=== PATIENT | female | born 1970 | race Asian ===

== ENCOUNTER 2017-08-27 17:07 | Inpatient (IN) | payer SELFPAY ==
[2017-08-27] VITALS (10 sets, daily range): BP systolic 113–138; BP diastolic 63–96
[~2017-08-27] VITALS: Ht 162.6 cm; Wt 56.7 kg
[2017-08-27] MEDS ORDERED: Morphine Sulfate 4mg/ml Inj IVP ONE (18:00)
[2017-08-27] MEDS ORDERED: Tetanus/Diptheria/Pertussis Vaccine 0.5ml Syr IM ONE (18:00)
[2017-08-27] MEDS ORDERED: ceFAZolin 2gm/50ml Premix 50 ML IVPB ONE (18:00)
[2017-08-27 18:24] LABS: BASOPHILS % (AUTO) 0.7 % (0.0-2.0); EOSINOPHILS % (AUTO) 1.9 % (0.0-3.0); LYMPHOCYTES % (AUTO) 14.8 % (20.0-45.0); MEAN CORPUSCULAR HEMOGLOBIN 34.2 PG (27.0-31.0); MEAN CORPUSCULAR HGB CONC 33.2 G/DL (32.0-36.0); MEAN CORPUSCULAR VOLUME 103 FL (80-99); MONOCYTES % (AUTO) 4.3 % (1.0-10.0); NEUTROPHILS % (AUTO) 78.4 % (45.0-75.0); PLATELET COUNT 282 K/UL (150-450); RED BLOOD COUNT 3.93 M/UL (4.20-5.40); WHITE BLOOD COUNT 8.3 K/UL (4.8-10.8)
[2017-08-27 18:28] LABS: INR 0.9 (0.9-1.1); PROTHROMBIN TIME 9.3 SEC (9.30-11.50)
[2017-08-27] MEDS ORDERED: Lidocaine 1% Plain 30 ml INJ ONE (18:30)
[2017-08-27 18:44] LABS: ALANINE AMINOTRANSFERASE 26 U/L (12-78); ALBUMIN/GLOBULIN RATIO 1.1 (1.0-2.7); ANION GAP 10 mmol/L (5-15); ASPARTATE AMINO TRANSFERASE 22 U/L (15-37); CARBON DIOXIDE 25 MMOL/L (21-32); CHLORIDE 107 MMOL/L (98-107); CKMB 1.6 NG/ML (0.0-3.6); CREATININE 0.8 MG/DL (0.55-1.30); GLOMERULAR FILTRATION RATE > 60 mL/min (>60); POTASSIUM 3.9 MMOL/L (3.5-5.1); SODIUM 142 MMOL/L (136-145)
[2017-08-27] MEDS ORDERED: Ketamine HCl 100mg syr IV ONE (19:15)
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
[2017-08-27] MEDS ORDERED: NKM (21:23)
[2017-08-27] MEDS ORDERED: Miralax 17gm pkt ORAL PRN (21:30)
[2017-08-27] MEDS ORDERED: Morphine Sulfate 4mg/ml Inj IVP PRN (21:30)
[2017-08-27] MEDS ORDERED: Zolpidem 5mg tab ORAL PRN (21:30)
[2017-08-27] MEDS ORDERED: Morphine Sulfate 2mg/ml Inj IVP PRN (21:30)
[2017-08-27] MEDS ORDERED: Mylanta II UD 30ml ORAL PRN (21:30)
[2017-08-27] MEDS: D5 1/2NS 1,000 ML IV SCH (23:17)
[2017-08-28] VITALS (9 sets, daily range): BP systolic 95–115; BP diastolic 59–69
[2017-08-28] MEDS ORDERED: ceFAZolin 1gm/50ml Premix 50 ML IV STA (07:51)
--- NOTE | 2017-08-28 07:57 | Consultation ---
Consult Note Consult Note Patient seen/evaluated. On IV abx Wash out in the ER with reduction. Will proceed with Irrigation and debridement and ORIF with nailing vs plate fixation as soon as possible today. Consent obtained and risk and benefits fully discussed. Thank you FANY RIVAS Aug 28, 2017 07:57
[2017-08-28] MEDS: ceFAZolin 1gm in D5W 55ml IVP SCH ×3 (08:26→17:00)
[2017-08-28] MEDS ORDERED: Docusate 100mg cap ORAL SCH (09:00)
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
[2017-08-28 10:05] LABS: BASOPHILS % (AUTO) 0.4 % (0.0-2.0); EOSINOPHILS % (AUTO) 0.9 % (0.0-3.0); LYMPHOCYTES % (AUTO) 12.8 % (20.0-45.0); MEAN CORPUSCULAR HEMOGLOBIN 34.7 PG (27.0-31.0); MEAN CORPUSCULAR HGB CONC 33.3 G/DL (32.0-36.0); MEAN CORPUSCULAR VOLUME 104 FL (80-99); MEAN PLATELET VOLUME 6.9 FL (6.5-10.1); MONOCYTES % (AUTO) 6.8 % (1.0-10.0); NEUTROPHILS % (AUTO) 79.1 % (45.0-75.0); PLATELET COUNT 250 K/UL (150-450); RED BLOOD COUNT 3.32 M/UL (4.20-5.40); RED CELL DISTRIBUTION WIDTH 11.2 % (11.6-14.8); WHITE BLOOD COUNT 7.1 K/UL (4.8-10.8)
[2017-08-28 10:15] LABS: INR 0.9 (0.9-1.1); PROTHROMBIN TIME 9.6 SEC (9.30-11.50)
[2017-08-28] MEDS: D5 1/2NS 1,000 ML IV SCH (12:20)
--- NOTE | 2017-08-28 12:30 | Diagnostic Imaging Report ---
Indication: Postop. Ankle fracture. Post reduction Comparison: Earlier the same day Findings: Left ankle is in a plaster cast. Acute moderately displaced fracture of the distal tibia and fibula again noted with comminution. There is improved alignment. There is still a persistent lateral displacement. Impression: Improved alignment.
--- NOTE | 2017-08-28 12:34 | Diagnostic Imaging Report ---
Indication: Pain left ankle. Trauma to left ankle Comparison: None Findings: Acute, severe, comminuted fracture of the distal tibia and fibula demonstrated above the ankle. The mortise appears normal in alignment.. There is moderate angulation and anterior displacement. Impression: Acute fracture of the distal tibia and fibula
[2017-08-28] MEDS ORDERED: Bacitracin 50000 Units Vial ONE ×2 (12:47→16:09)
[2017-08-28] MEDS ORDERED: NeoSporin Gu Irrig 1ml Amp IRRIG ONE ×2 (12:47→16:09)
[2017-08-28] MEDS ORDERED: cloNIDine 1000mcg/10ml inj ONE (13:52)
[2017-08-28] MEDS ORDERED: Bupivacaine 0.5% Inj 30 ml vial INJ ONE (13:52)
--- NOTE | 2017-08-28 14:20 | Pre-Procedure Note/Attestation ---
Pre-Procedure Note/Attestation Complete Prior to Procedure Planned Procedure: left Procedure Narrative: Tibial and Fibula ORIF Indications for Procedure Pre-Operative Diagnosis: Left open tib/fib fracture Attestation I attest that I discussed the nature of the procedure; its benefits; risks and complications; and alternatives (and the risks and benefits of such alternatives ), prior to the procedure, with the patient (or the patient's legal veterans employment representative). I attest that, if there was a reasonable possibility of needing a blood transfusion, the patient (or the patient's legal veterans employment representative) was given the [facility] standardized written summary, pursuant to the Enrique Rachana Blood Safety Act ([place] Health and Safety Code # 1645, as amended). I attest that I re-evaluated the patient just prior to the surgery and that there has been no change in the patient's H&P, except as documented below: FANY RIVAS Aug 28, 2017 14:20
--- NOTE | 2017-08-28 14:21 | Brief Operative Note ---
Immediate Post Operative Note Operative Note Pre-op Diagnosis: Left open tib/fib fracture Procedure: Left tib/fib ORIF Surgeon: gabriel Anesthesiologist: Tommy Anesthesia: regional Specimen: none Complications: none Condition: stable Fluids: Saline Estimated Blood Loss: minimal Drains: none Implant(s) used?: Yes - garcia system FANY RIVAS Aug 28, 2017 14:21
--- NOTE | 2017-08-28 14:43 | Anethesia Preoperative Eval ---
Anesthesia Pre-op PMH/ROS General Date of Evaluation: Aug 28, 2017 Anesthesiologist: Xiomara ASA Score: ASA 1 Mallampati Score Class I : Soft palate, uvula, fauces, pillars visible Class II: Soft palate, uvula, fauces visible Class III: Soft palate, base of uvula visible Class IV: Only hard plate visible Mallampati Classification: Class I Surgeon: Stephan Diagnosis: L Distal Tibia-Fibula Fx Surgical Procedure: ORIF L Distal Tibia-Fibula Fx Anesthesia History: none Family History: no anesthesia problems Allergies: Coded Allergies: No Known Allergies (Unverified , 08/27/17) Medications: see eMAR Anesthesia Pre-op Phys. Exam Physician Exam Last Vital Signs Date Time Temp Pulse Resp B/P (MAP) Pulse Ox O2 Delivery O2 Flow Rate FiO2 08/28/17 12:00 98.0 70 20 115/68 98 Room Air 08/27/17 22:29 2.0 Constitutional: NAD Neurologic: CN 2-12 intact Cardiovascular: RRR Respiratory: CTA Gastrointestinal: S/NT/ND Airway Exam Mallampati Score: Class I MO: full ROM: full Teeth: intact Anesthesia Pre-op A/P Labs Hematology Test 08/27/17 17:57 08/28/17 09:10 White Blood Count 8.3 K/UL (4.8-10.8) 7.1 K/UL (4.8-10.8) Red Blood Count 3.93 M/UL (4.20-5.40) L 3.32 M/UL (4.20-5.40) L Hemoglobin 13.5 G/DL (12.0-16.0) 11.5 G/DL (12.0-16.0) L Hematocrit 40.5 % (37.0-47.0) 34.6 % (37.0-47.0) L Mean Corpuscular Volume 103 FL (80-99) H 104 FL (80-99) H Mean Corpuscular Hemoglobin 34.2 PG (27.0-31.0) H 34.7 PG (27.0-31.0) H Mean Corpuscular Hemoglobin Concent 33.2 G/DL (32.0-36.0) 33.3 G/DL (32.0-36.0) Red Cell Distribution Width 11.0 % (11.6-14.8) L 11.2 % (11.6-14.8) L Platelet Count 282 K/UL (150-450) 250 K/UL (150-450) Mean Platelet Volume 7.0 FL (6.5-10.1) 6.9 FL (6.5-10.1) Neutrophils (%) (Auto) 78.4 % (45.0-75.0) H 79.1 % (45.0-75.0) H Lymphocytes (%) (Auto) 14.8 % (20.0-45.0) L 12.8 % (20.0-45.0) L Monocytes (%) (Auto) 4.3 % (1.0-10.0) 6.8 % (1.0-10.0) Eosinophils (%) (Auto) 1.9 % (0.0-3.0) 0.9 % (0.0-3.0) Basophils (%) (Auto) 0.7 % (0.0-2.0) 0.4 % (0.0-2.0) Coagulation Test 08/27/17 17:57 08/28/17 09:10 Prothrombin Time 9.3 SEC (9.30-11.50) 9.6 SEC (9.30-11.50) Prothromb Time International Ratio 0.9 (0.9-1.1) 0.9 (0.9-1.1) Activated Partial Thromboplast Time 21 SEC (23-33) L 25 SEC (23-33) Chemistry Test 08/27/17 17:57 08/28/17 09:10 Sodium Level 142 MMOL/L (136-145) Potassium Level 3.9 MMOL/L (3.5-5.1) Chloride Level 107 MMOL/L (98-107) Carbon Dioxide Level 25 MMOL/L (21-32) Anion Gap 10 mmol/L (5-15) Blood Urea Nitrogen 23 mg/dL (7-18) H Creatinine 0.8 MG/DL (0.55-1.30) Estimat Glomerular Filtration Rate > 60 mL/min (>60) Glucose Level 117 MG/DL (74-106) H Calcium Level 9.0 MG/DL (8.5-10.1) Total Bilirubin 0.3 MG/DL (0.2-1.0) Aspartate Amino Transf (AST/SGOT) 22 U/L (15-37) Alanine Aminotransferase (ALT/SGPT) 26 U/L (12-78) Alkaline Phosphatase 48 U/L (46-116) Total Creatine Kinase 165 U/L (26-308) Creatine Kinase MB 1.6 NG/ML (0.0-3.6) Creatine Kinase MB Relative Index 0.9 Total Protein 7.0 G/DL (6.4-8.2) Albumin 3.7 G/DL (3.4-5.0) Globulin 3.3 g/dL Albumin/Globulin Ratio 1.1 (1.0-2.7) Human Chorionic Gonadotropin, Qual Negative Serum Test Test 08/28/17 09:10 Human Chorionic Gonadotropin, Qual Negative Risk Assessment & Plan Assessment: ASA 1 Status Change Before Surgery: No Pre-Antibiotics Dru Gram Ancef IV Given Within 1 Hr of Incision: Yes Time Given: 14:16 Zackary Solano MD Aug 28, 2017 14:43
--- NOTE | 2017-08-28 14:45 | Immediate Post-Op Evaluation ---
Immediate Post-Op Evalulation Immediate Post-Op Evalulation Procedure: ORIF L Distal Tibia-Fibula Fx Date of Evaluation: Aug 28, 2017 Time of Evaluation: 16:54 IV Fluids: 1000 LR Blood Products: 0 Estimated Blood Loss: 50 Urinary Output: 0 Blood Pressure Systolic: 104 Blood Pressure Diastolic: 62 Pulse Rate: 84 Respiratory Rate: 16 O2 Sat by Pulse Oximetry: 100 Temperature (Fahrenheit): 97.7 Pain Score (1-10): 1 Nausea: No Vomiting: No Complications 0 Patient Status: awake, reacts, patent, extubated, none Hydration Status: adequate Dru Gram Ancef IV Given Within 1 Hr of Incision: Yes Time Given: 14:16 Zackary Solano MD Aug 28, 2017 14:45
[2017-08-28] MEDS ORDERED: Tubing IV Secondary IV ONE (15:52)
[2017-08-28] MEDS ORDERED: D5 1/2NS 1000ml IV ONE (15:52)
[2017-08-28] MEDS ORDERED: Sterile Water Irrig 1000ml IRRIG ONE (15:56)
[2017-08-28] MEDS ORDERED: NS Irrig 2000ml IRRIG ONE (15:56)
[2017-08-28] MEDS ORDERED: NS Irrig 1000ml ONE (15:56)
[2017-08-28] MEDS ORDERED: Alfentanil 2ml Inj ONE (15:56)
[2017-08-28] MEDS ORDERED: Lidocaine 1% Plain 30 ml INJ ONE (15:56)
[2017-08-28] MEDS ORDERED: Lidocaine 1% MPF 10mg/ml 5ml ONE (15:56)
[2017-08-28] MEDS ORDERED: Propofol 200mg/20ml IV ONE (15:56)
[2017-08-28] MEDS ORDERED: LR 1000ml ONE (15:56)
[2017-08-28] MEDS ORDERED: Midazolam 2mg/2ml Inj ONE (15:56)
[2017-08-28] MEDS ORDERED: Hydrogen Peroxide 473ml Bottle TOPIC ONE (16:04)
--- NOTE | 2017-08-28 16:39 | Diagnostic Imaging Report ---
Indication: Pain Comparison: None Findings: Fluoroscopic imaging of the left tibia and fibula demonstrating intramedullary malou fixation of a distal tibia fracture as well as a lateral fibular compression plate. Alignment is much improved and appears anatomic. Impression: Intraoperative imaging
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
[2017-08-28] MEDS ORDERED: Norco 5mg/325mg tab ORAL PRN ×2 (18:45→19:00)
[2017-08-28] MEDS ORDERED: HYDROmorphone 1mg/ml Carpuject SUBQ PRN ×2 (18:45→19:00)
[2017-08-28] MEDS ORDERED: Hydromorphone 0.5mg/0.5ml inj SUBQ PRN (19:00)
[2017-08-28] MEDS: Docusate 100mg cap ORAL SCH (20:57)
[2017-08-28] MEDS: Pericolace tab ORAL SCH (20:58)
[2017-08-28] MEDS: oxyCONTIN 10mg tab ORAL SCH (21:00)
[2017-08-28] MEDS ORDERED: ceFAZolin sod 1 GM in D5W 55 ML IV SCH (22:00)
[2017-08-28] MEDS: Hydromorphone 0.5mg/0.5ml inj SUBQ PRN (22:19)
[2017-08-29] VITALS: BP 128/61
[2017-08-29] MEDS: D5 1/2NS 1,000 ML IV SCH (00:56)
[2017-08-29] MEDS: ceFAZolin 1gm in D5W 55ml IVP SCH ×3 (00:56→16:51)
--- NOTE | 2017-08-29 01:17 | Operative Note - Dictated ---
DATE OF OPERATION: 08/28/2017 PREOPERATIVE DIAGNOSES: 1. Left distal third comminuted grade 2 open tibial fracture. 2. Left fibular distal third fracture with comminution and displacement. POSTOPERATIVE DIAGNOSES: 1. Left distal third comminuted grade 2 open tibial fracture. 2. Left fibular distal third fracture with comminution and displacement. PROCEDURE: 1. Left tib-fib irrigation and debridement using 3 liters of triple antibiotic simple solution over the open fracture site with debridement of soft tissue and bone. 2. Open reduction and internal fixation of the distal fibular fracture with 6-hole, one-third tubular plate. 3. Left tibial open reduction and internal fixation using a Hector 31.5 cm nail x 10 mm diameter nail with 2 proximal and 2 distal locking screws. 4. Use of fluoroscopy by surgeon less than 1 hour. 5. Layered wound closure over the fibula incision. 6. Repair of the entry hole over the patella tendon with longitudinal patella tendon repair. SURGEON: Igor Rothman M.D. SUPERVISOR FEED HOUSE: None. ANESTHESIOLOGIST: Zackary Solano M.D. ANESTHESIA: Spinal anesthesia. ESTIMATED BLOOD LOSS: Less than 150 mL. TOURNIQUET TIME: None. COMPLICATIONS: None. BRIEF HISTORY: The patient is a pleasant 47-year-old female who sustained an open distal tib-fib fracture. This was immediately irrigated in the ER with 3 liters of fluid and sterilely packed. This was reduced in the ER under sedation and was placed in a sling. She was admitted to the hospital and after full discussion of the risks and benefits of the surgery and complications associated with it, she opted for surgical treatment as described above. OPERATIVE PROCEDURE: The patient was brought to the operating table and was placed supine. All pressure points were well padded. Spinal anesthesia was induced. The left leg was prepped and draped in usual sterile fashion. Initially, the care was given to the open wound area. This was debrided to a stable zone. There was no necrosis, and there was no extensive tearing. There was a 2 cm wound on the medial side. The wound was extended proximally and distally and using Simpulse irrigation, 3 liters of Simpulse was used to irrigate the area and ends of the bone, which could be visualized underneath the soft tissue. Once this was completed, again there was no gross contamination. There was excellent debridement and the tissue was healthy. At this point, care was given to the open reduction and internal fixation. All gloves and gowns were changed and new gown sheaths were placed in. New instruments were used. A standard incision was made over the proximal distal third of the fibula. Incision was taken through subcutaneous tissue, the fibula was visualized, the fracture was reduced anatomically, and a 6-hole one-third tubular plate was applied and 3 proximal and 3 distal bicortical screws were placed without any complication. This reduced the fracture anatomically and using image intensifier, this was checked on AP and lateral, and appeared to be perfect. Also, this allowed the tibia, which was very comminuted, to be reduced. Once this was completed, care was given to the tibia. The knee was bent 130 degrees. An incision was made inferior to the patella through the patellar tendon. The entry point into the bone was palpated over the anterior tibia and the entry was obtained using an awl. Once this was completed, a ballpoint guide pin was placed in through the proximal tibia down to the shaft and to distal tibia. The position was checked on AP and lateral, appeared to be perfect. At this point, the sequential reaming was performed from [address] up to 11 mm. Measurements were made and a 31.5 cm nail appeared to be the right size. At this point, a 31.5 cm nail x 10 mm diameter nail was then placed in. The position was checked on AP and lateral, appeared to be perfect, and the reduction was anatomical. Once the nail was fully seated, the fracture site was visualized, and there was no gap. At this point, 2 proximal oblique screws were placed in in static fashion through the guide. Positions were checked to be perfect. At this point, 2 distal screws were placed, 1 from anterior posterior and 1 from medial to lateral. It should be noted initially the medial lateral screw was long and traversed the fibula. However, this was checked on the image and was changed to a shorter screw. This provided bicortical fixation. Also, attempt was made to make a third screw on the proximal hole, although this went through a fracture site and appeared to be not be a good screw. Therefore, 2 proximal and 2 distal screws were used. The wounds were thoroughly irrigated using copious amount of fluid. The position of screws and nail was checked and they were perfect. The fibular plate was perfect. A 5 mm end cap was placed on top of the nail. The nail was well seated through the level of the bone and there was no impingement. At this point, all wounds were thoroughly irrigated using copious amount of fluid. The patellar tendon was closed using #1 Vicryl suture. Subcutaneous tissue was closed using 2-0 Vicryl suture. The skin was closed using danny. The area of the open wound was closed just with danny loosely to allow for drainage. No Vicryl sutures were placed over the area of the open wound from the fracture. All instrument counts and lap counts were correct. Antibiotics were given prior to the surgery and will be continued for 24 hours after. The time-out was performed prior to surgery and all instrument counts and lap counts were performed at the beginning and at the end of surgery. Igor Rothman M.D. DR: JESÚS JOB#: [id number] CC:
[2017-08-29 04:39] VITALS: BP 122/71
[2017-08-29] MEDS: Hydromorphone 0.5mg/0.5ml inj SUBQ PRN ×2 (05:39→08:35)
--- NOTE | 2017-08-29 07:42 | Orthopedic Progress Note ---
Orthopedic - Progress Note Subjective Additional Comments Left leg pain, but getting better with elevation. Objective Vital Signs Last 24 Hour Vital Signs Date Time Temp Pulse Resp B/P (MAP) Pulse Ox O2 Delivery O2 Flow Rate FiO2 08/29/17 04:39 100.2 92 19 122/71 97 Room Air 08/29/17 00:00 98.1 85 18 128/61 96 Room Air 08/28/17 20:00 97.2 72 18 98/61 100 Room Air 08/28/17 17:30 98.6 74 15 104/62 100 Room Air 08/28/17 17:20 73 17 95/62 100 Room Air 08/28/17 17:05 77 18 102/69 100 Room Air 08/28/17 16:53 81 11 103/67 100 Room Air 08/28/17 16:48 81 17 102/59 100 Simple Mask 6.0 08/28/17 16:43 97.7 85 24 104/62 100 Simple Mask 6.0 08/28/17 16:42 84 16 100 08/28/17 12:00 98.0 70 20 115/68 98 Room Air 08/28/17 08:15 98.1 68 21 112/68 97 Room Air I&O Intake and Output 08/29/17 08/30/17 19:00 07:00 Intake Total 75 ml Balance 75 ml IV Total 75 ml Wound: clean, dry, intact Drains: none Neuro Status: normal Vascular Status: normal Assessment Procedure Performed Left tib/fib ORIF Plan Plan: PT, pain management, discharge plan, discharge to home Additional Comments Left Tib/Fib ORIF doing well. PT OT Monitor Hgb DVT prophylaxis Continue FANY MATHIS Aug 29, 2017 07:42
[2017-08-29] MEDS: Enoxaparin 30mg Inj SUBQ SCH ×3 (08:34→20:51)
[2017-08-29 08:39] LABS: BASOPHILS % (AUTO) 0.5 % (0.0-2.0); EOSINOPHILS % (AUTO) 1.3 % (0.0-3.0); LYMPHOCYTES % (AUTO) 14.1 % (20.0-45.0); MEAN CORPUSCULAR HEMOGLOBIN 35.3 PG (27.0-31.0); MEAN CORPUSCULAR HGB CONC 33.9 G/DL (32.0-36.0); MEAN CORPUSCULAR VOLUME 104 FL (80-99); MEAN PLATELET VOLUME 6.5 FL (6.5-10.1); MONOCYTES % (AUTO) 8.4 % (1.0-10.0); NEUTROPHILS % (AUTO) 75.7 % (45.0-75.0); PLATELET COUNT 210 K/UL (150-450); RED BLOOD COUNT 2.97 M/UL (4.20-5.40); WHITE BLOOD COUNT 6.2 K/UL (4.8-10.8)
[2017-08-29 08:55] LABS: ANION GAP 5 mmol/L (5-15); CALCIUM 8.4 MG/DL (8.5-10.1); CARBON DIOXIDE 29 MMOL/L (21-32); CHLORIDE 107 MMOL/L (98-107); CREATININE 0.7 MG/DL (0.55-1.30); GLOMERULAR FILTRATION RATE > 60 mL/min (>60); POTASSIUM 3.4 MMOL/L (3.5-5.1); SODIUM 141 MMOL/L (136-145)
[2017-08-29 09:00] VITALS: BP 117/70
[2017-08-29] MEDS: Docusate 100mg cap ORAL SCH ×3 (09:00→18:00)
[2017-08-29] MEDS: oxyCONTIN 10mg tab ORAL SCH ×2 (09:00→20:53)
[2017-08-29] MEDS: Pericolace tab ORAL SCH ×2 (09:00→18:00)
--- NOTE | 2017-08-29 10:05 | Diagnostic Imaging Report ---
Indication: TRAUMA Technique: 2 views of the left tibia and fibula Comparison: 08/27/2017 Findings: Interim surgical repair of previously demonstrated distal tibial and fibular fracture dislocation. Good anatomic alignment. Overlying skin danny noted. Retained air from the surgical exposure is noted Impression: Postoperative left leg. No unusual features
[2017-08-29 12:00] VITALS: BP 120/74
--- NOTE | 2017-08-29 14:58 | 48 Hour Post Anesthesia Eval ---
Post Anesthesia Evaluation Procedure: ORIF L Distal Tibia-Fibula Fx Date of Evaluation: Aug 29, 2017 Time of Evaluation: 14:57 Blood Pressure Systolic: 116 0: 58 Pulse Rate: 72 Respiratory Rate: 20 Temperature (Fahrenheit): 97.6 O2 Sat by Pulse Oximetry: 98 Airway: patent Nausea: No Vomiting: No Pain Intensity: 3 Hydration Status: adequate Cardiopulmonary Status: stable Mental Status/LOC: patient returned to baseline Follow-up Care/Observations: n/a Post-Anesthesia Complications: none Follow-up care needed: N/A ROLF SOTO M.D. Aug 29, 2017 14:58
--- NOTE | 2017-08-29 15:53 | General Progress Note ---
Assessment/Plan Problem List: (1) Open left ankle fracture ICD Codes: S82.892B - Other fracture of left lower leg, initial encounter for open fracture type I or II SNOMED: 02916959 Qualifiers: Status: stable Assessment/Plan Appreciate ortho rec's s/p Left tib/fib ORIF on 08/28/17 Post operative recommendations include: - encourage mobilization/ambulation - encourage incentive spirometry to optimize pulmonary hygiene - DVT/GI prophylaxis as appropriate - ctm CBC and hemodynamics - ctm electrolytes, adjust/replete prn - PT/OT - pain control, supportive care, bowel regimen - DC planning Subjective Date patient seen: Aug 29, 2017 Time patient seen: 15:53 ROS Limited/Unobtainable: No Constitutional: Reports: no symptoms HEENT: Reports: no symptoms Cardiovascular: Reports: no symptoms Respiratory: Reports: no symptoms Gastrointestinal/Abdominal: Reports: no symptoms Genitourinary: Reports: no symptoms Neurologic/Psychiatric: Reports: no symptoms Endocrine: Reports: no symptoms Hematologic/Lymphatic: Reports: no symptoms Allergies: Coded Allergies: No Known Allergies (Unverified , 08/27/17) All Systems: reviewed and negative except above Subjective No acute o/n events s/p Left tib/fib ORIF yesterday POD#1 Pt c/o poor pain control. Worked w/ PT but limited 2/2 pain Denies f/c, n/v, d/c, chest pain, SOB Objective Last 24 Hour Vital Signs Date Time Temp Pulse Resp B/P (MAP) Pulse Ox O2 Delivery O2 Flow Rate FiO2 08/29/17 14:58 72 20 98 08/29/17 12:00 98.0 80 18 120/74 96 Room Air 08/29/17 09:00 97.7 76 18 117/70 98 Room Air 08/29/17 04:39 100.2 92 19 122/71 97 Room Air 08/29/17 00:00 98.1 85 18 128/61 96 Room Air 08/28/17 20:00 97.2 72 18 98/61 100 Room Air 08/28/17 17:30 98.6 74 15 104/62 100 Room Air 08/28/17 17:20 73 17 95/62 100 Room Air 08/28/17 17:05 77 18 102/69 100 Room Air 08/28/17 16:53 81 11 103/67 100 Room Air 08/28/17 16:48 81 17 102/59 100 Simple Mask 6.0 08/28/17 16:43 97.7 85 24 104/62 100 Simple Mask 6.0 08/28/17 16:42 84 16 100 Intake and Output 08/29/17 08/30/17 19:00 07:00 Intake Total 1305 ml Balance 1305 ml Intake Oral 800 ml IV Total 505 ml # Voids 3 Laboratory Tests 08/29/17 08:10: White Blood Count 6.2, Red Blood Count 2.97L, Hemoglobin 10.5L, Hematocrit 30.9L , Mean Corpuscular Volume 104H, Mean Corpuscular Hemoglobin 35.3H, Mean Corpuscular Hemoglobin Concent 33.9, Red Cell Distribution Width 11.0L, Platelet Count 210, Mean Platelet Volume 6.5, Neutrophils (%) (Auto) 75.7H, Lymphocytes (%) (Auto) 14.1L, Monocytes (%) (Auto) 8.4, Eosinophils (%) (Auto) 1.3, Basophils (%) (Auto) 0.5, Sodium Level 141, Potassium Level 3.4L, Chloride Level 107, Carbon Dioxide Level 29, Anion Gap 5, Blood Urea Nitrogen 7, Creatinine 0.7, Estimat Glomerular Filtration Rate > 60, Glucose Level 139H, Calcium Level 8.4L Height (Feet): 5 Height (Inches): 4.00 Weight (Pounds): 125 Objective General: alert, cooperative, no distress, appears stated age Head: normocephalic, without obvious abnormality, atraumatic Eyes: conjunctivae/corneas clear. PERRL, EOM's intact Throat: lips, mucosa, and tongue normal. MMM Neck: supple, symmetrical, trachea midline, and no JVD Lungs: clear to auscultation bilaterally Heart: regular rate and rhythm, S1, S2 normal, no murmur, click, rub or gallop Abdomen: soft, non-tender, non-distended, bowel sounds normal; no masses or organomegaly Extremities: LLE in cast Pulses: 2+ and symmetric Skin: skin color, texture, turgor normal; no rashes or lesions Neurologic: grossly normal, no focal deficits Jenny Carlos M.D. Aug 29, 2017 15:53
[2017-08-29] MEDS: Hydromorphone 0.5mg/0.5ml inj IVP PRN (16:53)
[2017-08-29 18:22] VITALS: BP 96/57
[2017-08-29 20:00] VITALS: BP 111/59
[2017-08-29] MEDS ORDERED: D5 1/2NS 1000ml IV ONE (21:46)
[2017-08-30] VITALS: BP 117/77
[2017-08-30] MEDS: ceFAZolin 1gm in D5W 55ml IVP SCH ×4 (00:03→23:44)
[2017-08-30 04:00] VITALS: BP 111/74
[2017-08-30 07:26] LABS: BASOPHILS % (AUTO) 0.5 % (0.0-2.0); MEAN CORPUSCULAR HEMOGLOBIN 34.2 PG (27.0-31.0); MEAN CORPUSCULAR HGB CONC 33.1 G/DL (32.0-36.0); MEAN CORPUSCULAR VOLUME 103 FL (80-99); MEAN PLATELET VOLUME 6.8 FL (6.5-10.1); MONOCYTES % (AUTO) 9.4 % (1.0-10.0); NEUTROPHILS % (AUTO) 68.1 % (45.0-75.0); PLATELET COUNT 224 K/UL (150-450); RED BLOOD COUNT 2.94 M/UL (4.20-5.40); RED CELL DISTRIBUTION WIDTH 10.7 % (11.6-14.8); WHITE BLOOD COUNT 5.7 K/UL (4.8-10.8)
[2017-08-30 07:30] LABS: ANION GAP 7 mmol/L (5-15); CALCIUM 8.7 MG/DL (8.5-10.1); CARBON DIOXIDE 28 MMOL/L (21-32); CHLORIDE 104 MMOL/L (98-107); CREATININE 0.6 MG/DL (0.55-1.30); GLOMERULAR FILTRATION RATE > 60 mL/min (>60); SODIUM 139 MMOL/L (136-145)
[2017-08-30 08:33] VITALS: BP 112/63
[2017-08-30] MEDS: Pericolace tab ORAL SCH ×2 (08:49→17:24)
[2017-08-30] MEDS: oxyCONTIN 10mg tab ORAL SCH ×2 (08:49→21:25)
[2017-08-30] MEDS: Docusate 100mg cap ORAL SCH ×3 (08:49→17:25)
[2017-08-30] MEDS: Enoxaparin 30mg Inj SUBQ SCH ×2 (08:51→21:28)
[2017-08-30] MEDS ORDERED: NS 275ml ONE (09:22)
[2017-08-30 11:19] VITALS: BP 113/62
--- NOTE | 2017-08-30 13:00 | General Progress Note ---
Assessment/Plan Problem List: (1) Open left ankle fracture ICD Codes: S82.892B - Other fracture of left lower leg, initial encounter for open fracture type I or II SNOMED: 26287435 Qualifiers: (2) Hypokalemia ICD Codes: E87.6 - Hypokalemia SNOMED: 58737523 (3) Acute blood loss anemia ICD Codes: D62 - Acute posthemorrhagic anemia SNOMED: 836101445 Status: stable Assessment/Plan Appreciate ortho rec's s/p Left tib/fib ORIF on 08/28/17 Post operative recommendations include: - encourage mobilization/ambulation - encourage incentive spirometry to optimize pulmonary hygiene - DVT/GI prophylaxis as appropriate - ctm CBC and hemodynamics - ctm electrolytes, adjust/replete prn - PT/OT - pain control, supportive care, bowel regimen - DC planning - DME ordered - HH ordered Subjective Date patient seen: Aug 30, 2017 Time patient seen: 13:00 Allergies: Coded Allergies: No Known Allergies (Unverified , 08/27/17) Subjective No acute o/n events s/p Left tib/fib ORIF POD#2 Pain better controled. Worked w/ PT but limited 2/2 pain. Family concerned abt d /c as pt not ambulating much Denies f/c, n/v, d/c, chest pain, SOB Objective Last 24 Hour Vital Signs Date Time Temp Pulse Resp B/P (MAP) Pulse Ox O2 Delivery O2 Flow Rate FiO2 08/30/17 11:19 97.6 88 19 113/62 97 Room Air 08/30/17 08:33 99.0 89 19 112/63 98 Room Air 08/30/17 04:00 99.5 84 21 111/74 98 Room Air 08/30/17 00:00 98.4 83 20 117/77 97 Room Air 08/29/17 20:00 98.1 77 20 111/59 96 Room Air 08/29/17 18:22 98.2 74 15 96/57 97 08/29/17 14:58 72 20 98 Laboratory Tests 08/30/17 04:30: White Blood Count 5.7, Red Blood Count 2.94L, Hemoglobin 10.1L, Hematocrit 30.4L , Mean Corpuscular Volume 103H, Mean Corpuscular Hemoglobin 34.2H, Mean Corpuscular Hemoglobin Concent 33.1, Red Cell Distribution Width 10.7L, Platelet Count 224, Mean Platelet Volume 6.8, Neutrophils (%) (Auto) 68.1, Lymphocytes (%) (Auto) 19.0L, Monocytes (%) (Auto) 9.4, Eosinophils (%) (Auto) 3.0, Basophils (%) (Auto) 0.5, Sodium Level 139, Potassium Level 3.0L, Chloride Level 104, Carbon Dioxide Level 28, Anion Gap 7, Blood Urea Nitrogen 6L, Creatinine 0.6, Estimat Glomerular Filtration Rate > 60, Glucose Level 100, Calcium Level 8.7 Height (Feet): 5 Height (Inches): 4.00 Weight (Pounds): 125 Objective General: alert, cooperative, no distress, appears stated age Head: normocephalic, without obvious abnormality, atraumatic Eyes: conjunctivae/corneas clear. PERRL, EOM's intact Throat: lips, mucosa, and tongue normal. MMM Neck: supple, symmetrical, trachea midline, and no JVD Lungs: clear to auscultation bilaterally Heart: regular rate and rhythm, S1, S2 normal, no murmur, click, rub or gallop Abdomen: soft, non-tender, non-distended, bowel sounds normal; no masses or organomegaly Extremities: LLE in cast Pulses: 2+ and symmetric Skin: skin color, texture, turgor normal; no rashes or lesions Neurologic: grossly normal, no focal deficits Jenny Carlos M.D. Aug 30, 2017 13:00
[2017-08-30 15:59] VITALS: BP 106/76
[2017-08-30] MEDS: Hydromorphone 0.5mg/0.5ml inj IVP PRN (19:54)
[2017-08-30 20:00] VITALS: BP 111/68
[2017-08-31] VITALS (7 sets, daily range): BP systolic 88–111; BP diastolic 50–72
[2017-08-31 07:50] LABS: BASOPHILS % (AUTO) 0.7 % (0.0-2.0); LYMPHOCYTES % (AUTO) 25.1 % (20.0-45.0); MEAN CORPUSCULAR HEMOGLOBIN 34.6 PG (27.0-31.0); MEAN CORPUSCULAR HGB CONC 33.8 G/DL (32.0-36.0); MEAN CORPUSCULAR VOLUME 103 FL (80-99); MONOCYTES % (AUTO) 9.9 % (1.0-10.0); NEUTROPHILS % (AUTO) 60.4 % (45.0-75.0); PLATELET COUNT 225 K/UL (150-450); RED CELL DISTRIBUTION WIDTH 10.4 % (11.6-14.8)
[2017-08-31] MEDS: ceFAZolin 1gm in D5W 55ml IVP SCH ×2 (07:52→16:15)
[2017-08-31] MEDS: Pericolace tab ORAL SCH ×2 (07:53→17:50)
[2017-08-31] MEDS: Docusate 100mg cap ORAL SCH ×3 (07:53→17:50)
[2017-08-31] MEDS: oxyCONTIN 10mg tab ORAL SCH ×2 (07:53→21:00)
[2017-08-31] MEDS: Enoxaparin 30mg Inj SUBQ SCH ×2 (07:54→21:19)
[2017-08-31 08:08] LABS: ANION GAP 8 mmol/L (5-15); CALCIUM 8.7 MG/DL (8.5-10.1); CARBON DIOXIDE 27 MMOL/L (21-32); CHLORIDE 107 MMOL/L (98-107); CREATININE 0.6 MG/DL (0.55-1.30); GLOMERULAR FILTRATION RATE > 60 mL/min (>60); POTASSIUM 3.7 MMOL/L (3.5-5.1); SODIUM 142 MMOL/L (136-145)
[2017-08-31] MEDS: Norco 10mg/325mg tab ORAL PRN (12:55)
--- NOTE | 2017-08-31 16:04 | General Progress Note ---
Assessment/Plan Problem List: (1) Open left ankle fracture ICD Codes: S82.892B - Other fracture of left lower leg, initial encounter for open fracture type I or II SNOMED: 71256148 Qualifiers: (2) Hypokalemia ICD Codes: E87.6 - Hypokalemia SNOMED: 72610815 (3) Acute blood loss anemia ICD Codes: D62 - Acute posthemorrhagic anemia SNOMED: 972304086 Status: stable Assessment/Plan Appreciate ortho rec's s/p Left tib/fib ORIF on 08/28/17 Post operative recommendations include: - encourage mobilization/ambulation - encourage incentive spirometry to optimize pulmonary hygiene - DVT/GI prophylaxis as appropriate - ctm CBC and hemodynamics - ctm electrolytes, adjust/replete prn - PT/OT - pain control, supportive care, bowel regimen - DC planning - DME ordered - HH ordered - Possible d/c Fri vs Subjective Date patient seen: Aug 31, 2017 Time patient seen: 16:04 ROS Limited/Unobtainable: No Constitutional: Reports: no symptoms HEENT: Reports: no symptoms Cardiovascular: Reports: no symptoms Respiratory: Reports: no symptoms Gastrointestinal/Abdominal: Reports: no symptoms Genitourinary: Reports: no symptoms Neurologic/Psychiatric: Reports: no symptoms Endocrine: Reports: no symptoms Hematologic/Lymphatic: Reports: no symptoms Allergies: Coded Allergies: No Known Allergies (Unverified , 08/27/17) All Systems: reviewed and negative except above Subjective No acute o/n events s/p Left tib/fib ORIF POD#3 Pain better controlled. Worked w/ PT but limited 2/2 pain. Family concerned abt d/c as pt not yet ambulating much Denies f/c, n/v, d/c, chest pain, SOB Objective Last 24 Hour Vital Signs Date Time Temp Pulse Resp B/P (MAP) Pulse Ox O2 Delivery O2 Flow Rate FiO2 08/31/17 11:18 98.0 79 19 111/72 98 Room Air 08/31/17 08:09 98.2 85 19 100/63 100 Room Air 08/31/17 04:01 96/50 08/31/17 03:16 96.0 81 20 88/57 98 Room Air 08/31/17 00:00 98.1 85 21 98/51 95 Room Air 08/30/17 20:24 97.5 08/30/17 20:00 97.7 88 21 111/68 98 Room Air Laboratory Tests 08/31/17 06:00: White Blood Count 5.0, Red Blood Count 2.90L, Hemoglobin 10.0L, Hematocrit 29.7L , Mean Corpuscular Volume 103H, Mean Corpuscular Hemoglobin 34.6H, Mean Corpuscular Hemoglobin Concent 33.8, Red Cell Distribution Width 10.4L, Platelet Count 225, Mean Platelet Volume 7.0, Neutrophils (%) (Auto) 60.4, Lymphocytes (%) (Auto) 25.1, Monocytes (%) (Auto) 9.9, Eosinophils (%) (Auto) 4.0H, Basophils (%) (Auto) 0.7, Sodium Level 142, Potassium Level 3.7, Chloride Level 107, Carbon Dioxide Level 27, Anion Gap 8, Blood Urea Nitrogen 11, Creatinine 0.6, Estimat Glomerular Filtration Rate > 60, Glucose Level 93, Calcium Level 8.7 Height (Feet): 5 Height (Inches): 4.00 Weight (Pounds): 125 Objective General: alert, cooperative, no distress, appears stated age Head: normocephalic, without obvious abnormality, atraumatic Eyes: conjunctivae/corneas clear. PERRL, EOM's intact Throat: lips, mucosa, and tongue normal. MMM Neck: supple, symmetrical, trachea midline, and no JVD Lungs: clear to auscultation bilaterally Heart: regular rate and rhythm, S1, S2 normal, no murmur, click, rub or gallop Abdomen: soft, non-tender, non-distended, bowel sounds normal; no masses or organomegaly Extremities: LLE in cast Pulses: 2+ and symmetric Skin: skin color, texture, turgor normal; no rashes or lesions Neurologic: grossly normal, no focal deficits Jenny Carlos M.D. Aug 31, 2017 16:04
[2017-08-31] MEDS ORDERED: NS 275ml ONE (17:27)
[2017-09-01] VITALS: BP 93/56
[2017-09-01] MEDS: ceFAZolin 1gm in D5W 55ml IVP SCH ×4 (00:14→23:34)
[2017-09-01] MEDS: Norco 10mg/325mg tab ORAL PRN (00:17)
[2017-09-01 04:00] VITALS: BP 97/63
[2017-09-01 08:00] VITALS: BP 94/54
[2017-09-01] MEDS: Pericolace tab ORAL SCH ×2 (09:12→17:29)
[2017-09-01] MEDS: oxyCONTIN 10mg tab ORAL SCH ×2 (09:13→20:22)
[2017-09-01] MEDS: Docusate 100mg cap ORAL SCH ×3 (09:13→17:29)
[2017-09-01] MEDS: Enoxaparin 30mg Inj SUBQ SCH ×2 (09:15→20:28)
[2017-09-01 12:00] VITALS: BP 97/55
--- NOTE | 2017-09-01 12:11 | Cardiology Report ---
APPROVED REPORT EKG Measurement Heart [id number] Normal sinus rhythm Normal ECG
--- NOTE | 2017-09-01 16:49 | General Progress Note ---
Assessment/Plan Problem List: (1) Open left ankle fracture ICD Codes: S82.892B - Other fracture of left lower leg, initial encounter for open fracture type I or II SNOMED: [id number] Qualifiers: (2) Hypokalemia ICD Codes: E87.6 - Hypokalemia SNOMED: 35084714 (3) Acute blood loss anemia ICD Codes: D62 - Acute posthemorrhagic anemia SNOMED: 116312048 Status: stable Assessment/Plan Appreciate ortho rec's s/p Left tib/fib ORIF on 08/28/17 Post operative recommendations include: - encourage mobilization/ambulation - encourage incentive spirometry to optimize pulmonary hygiene - DVT/GI prophylaxis as appropriate - ctm CBC and hemodynamics - ctm electrolytes, adjust/replete prn - PT/OT - pain control, supportive care, bowel regimen - DC planning - DME ordered - HH ordered - Possible d/c tomorrow Subjective Date patient seen: Sep 01, 2017 Time patient seen: 16:49 ROS Limited/Unobtainable: No Constitutional: Reports: no symptoms HEENT: Reports: no symptoms Cardiovascular: Reports: no symptoms Respiratory: Reports: no symptoms Gastrointestinal/Abdominal: Reports: no symptoms Genitourinary: Reports: no symptoms Neurologic/Psychiatric: Reports: no symptoms Endocrine: Reports: no symptoms Hematologic/Lymphatic: Reports: no symptoms Allergies: Coded Allergies: No Known Allergies (Unverified , 08/27/17) Subjective No acute o/n events s/p Left tib/fib ORIF POD#4 Pain better controlled. Worked w/ PT but limited 2/2 pain. Family concerned abt d/c as pt not yet ambulating much Denies f/c, n/v, d/c, chest pain, SOB Objective Last 24 Hour Vital Signs Date Time Temp Pulse Resp B/P (MAP) Pulse Ox O2 Delivery O2 Flow Rate FiO2 09/01/17 12:00 97.7 78 16 97/55 97 09/01/17 08:00 97.7 75 16 94/54 98 09/01/17 04:00 98.1 77 20 97/63 98 Room Air 09/01/17 01:16 97.5 09/01/17 00:00 98.2 96 20 93/56 95 Room Air 08/31/17 20:00 97.5 87 20 88/52 98 Room Air Intake and Output 09/01/17 09/02/17 19:00 07:00 Intake Total 55 ml Balance 55 ml IV Total 55 ml Height (Feet): 5 Height (Inches): 4.00 Weight (Pounds): 125 Objective General: alert, cooperative, no distress, appears stated age Head: normocephalic, without obvious abnormality, atraumatic Eyes: conjunctivae/corneas clear. PERRL, EOM's intact Throat: lips, mucosa, and tongue normal. MMM Neck: supple, symmetrical, trachea midline, and no JVD Lungs: clear to auscultation bilaterally Heart: regular rate and rhythm, S1, S2 normal, no murmur, click, rub or gallop Abdomen: soft, non-tender, non-distended, bowel sounds normal; no masses or organomegaly Extremities: LLE in cast Pulses: 2+ and symmetric Skin: skin color, texture, turgor normal; no rashes or lesions Neurologic: grossly normal, no focal deficits Jenny Carlos M.D. Sep 01, 2017 16:49
[2017-09-01 20:00] VITALS: BP 97/45
[2017-09-02] VITALS: BP 96/58
[2017-09-02 04:00] VITALS: BP 107/65
[2017-09-02] MEDS: Docusate 100mg cap ORAL SCH ×3 (08:54→17:06)
[2017-09-02] MEDS: oxyCONTIN 10mg tab ORAL SCH ×2 (08:55→20:15)
[2017-09-02] MEDS: Pericolace tab ORAL SCH ×2 (08:56→17:06)
[2017-09-02] MEDS: Enoxaparin 30mg Inj SUBQ SCH ×2 (08:56→20:17)
[2017-09-02] MEDS: ceFAZolin 1gm in D5W 55ml IVP SCH ×3 (09:43→23:55)
[2017-09-02 12:15] VITALS: BP 98/70
[2017-09-02] MEDS: Norco 10mg/325mg tab ORAL PRN ×2 (14:40→18:36)
[2017-09-02] MEDS ORDERED: HYDROCODON-ACE1 EA13 ORAL (15:22)
[2017-09-02] MEDS ORDERED: OXYCONTIN10 MG ORAL (15:22)
[2017-09-02 16:00] VITALS: BP 102/63
[2017-09-02] MEDS ORDERED: HYDROmorphone 1mg/ml Carpuject IVP PRN (16:45)
[2017-09-02 20:05] VITALS: BP 99/63
--- NOTE | 2017-09-02 22:31 | General Progress Note ---
Assessment/Plan Problem List: (1) Open left ankle fracture ICD Codes: S82.892B - Other fracture of left lower leg, initial encounter for open fracture type I or II SNOMED: 03023607 Qualifiers: (2) Hypokalemia ICD Codes: E87.6 - Hypokalemia SNOMED: 80103782 (3) Acute blood loss anemia ICD Codes: D62 - Acute posthemorrhagic anemia SNOMED: 487343503 Status: stable Assessment/Plan Appreciate ortho rec's s/p Left tib/fib ORIF on 08/28/17 Post operative recommendations include: - encourage mobilization/ambulation - encourage incentive spirometry to optimize pulmonary hygiene - DVT/GI prophylaxis as appropriate - ctm CBC and hemodynamics - ctm electrolytes, adjust/replete prn - PT/OT - pain control, supportive care, bowel regimen - DC planning - DME ordered - HH ordered - Possible d/c tomorrow Subjective Date patient seen: Sep 02, 2017 Time patient seen: 16:00 ROS Limited/Unobtainable: No Constitutional: Reports: no symptoms HEENT: Reports: no symptoms Cardiovascular: Reports: no symptoms Respiratory: Reports: no symptoms Gastrointestinal/Abdominal: Reports: no symptoms Genitourinary: Reports: no symptoms Neurologic/Psychiatric: Reports: no symptoms Endocrine: Reports: no symptoms Hematologic/Lymphatic: Reports: no symptoms Allergies: Coded Allergies: No Known Allergies (Unverified , 08/27/17) All Systems: reviewed and negative except above Subjective No acute o/n events s/p Left tib/fib ORIF POD#5 C/o increased pain today. Worked w/ PT but limited 2/2 pain. Family concerned abt d/c as pt not yet ambulating much Denies f/c, n/v, d/c, chest pain, SOB Family states pt will be going to hotel after d/c. younger daughter flying out in a few days. Older daughter will be at work. Therefore, pt has no one to care for her Objective Last 24 Hour Vital Signs Date Time Temp Pulse Resp B/P (MAP) Pulse Ox O2 Delivery O2 Flow Rate FiO2 09/02/17 20:05 97.9 87 17 99/63 95 Room Air 09/02/17 17:06 97.9 09/02/17 16:00 98.5 75 18 102/63 98 Room Air 09/02/17 12:15 97.9 83 22 98/70 99 Room Air 09/02/17 04:00 97.0 77 20 107/65 97 Room Air 09/02/17 00:00 98.1 71 20 96/58 99 Room Air 71 Intake and Output 09/02/17 09/03/17 19:00 07:00 Intake Total 1900 ml Balance 1900 ml Intake Oral 1900 ml # Voids 2 # Bowel Movements 2 Height (Feet): 5 Height (Inches): 4.00 Weight (Pounds): 125 Objective General: alert, cooperative, no distress, appears stated age Head: normocephalic, without obvious abnormality, atraumatic Eyes: conjunctivae/corneas clear. PERRL, EOM's intact Throat: lips, mucosa, and tongue normal. MMM Neck: supple, symmetrical, trachea midline, and no JVD Lungs: clear to auscultation bilaterally Heart: regular rate and rhythm, S1, S2 normal, no murmur, click, rub or gallop Abdomen: soft, non-tender, non-distended, bowel sounds normal; no masses or organomegaly Extremities: LLE in cast Pulses: 2+ and symmetric Skin: skin color, texture, turgor normal; no rashes or lesions Neurologic: grossly normal, no focal deficits Jenny Carlos M.D. Sep 02, 2017 22:31
[2017-09-03 00:01] VITALS: BP 100/69
[2017-09-03 04:25] VITALS: BP 101/70
[2017-09-03] MEDS: Docusate 100mg cap ORAL SCH ×3 (07:56→18:54)
[2017-09-03] MEDS: Pericolace tab ORAL SCH ×2 (07:56→18:54)
[2017-09-03] MEDS: oxyCONTIN 10mg tab ORAL SCH ×2 (07:56→20:15)
[2017-09-03] MEDS: Enoxaparin 30mg Inj SUBQ SCH ×2 (07:59→20:14)
[2017-09-03 08:00] VITALS: BP 102/69
[2017-09-03] MEDS: ceFAZolin 1gm in D5W 55ml IVP SCH (08:10)
[2017-09-03 12:00] VITALS: BP 115/59
[2017-09-03] MEDS: Norco 10mg/325mg tab ORAL PRN ×2 (12:49→23:19)
--- NOTE | 2017-09-03 15:38 | General Progress Note ---
Assessment/Plan Problem List: (1) Open left ankle fracture ICD Codes: S82.892B - Other fracture of left lower leg, initial encounter for open fracture type I or II SNOMED: 56277204 Qualifiers: (2) Hypokalemia ICD Codes: E87.6 - Hypokalemia SNOMED: 04019710 (3) Acute blood loss anemia ICD Codes: D62 - Acute posthemorrhagic anemia SNOMED: 129924913 Status: stable Assessment/Plan Appreciate ortho rec's s/p Left tib/fib ORIF on 08/28/17 Post operative recommendations include: - encourage mobilization/ambulation - encourage incentive spirometry to optimize pulmonary hygiene - DVT/GI prophylaxis as appropriate - ctm CBC and hemodynamics - ctm electrolytes, adjust/replete prn - PT/OT - pain control, supportive care, bowel regimen - DC planning - DME ordered - HH ordered - Awaiting confirmation of DME prior to d/c home Subjective Date patient seen: Sep 03, 2017 Time patient seen: 15:38 Allergies: Coded Allergies: No Known Allergies (Unverified , 08/27/17) Subjective No acute o/n events s/p Left tib/fib ORIF POD#6 Awaiting confirmation of DME prior to safe d/c plan C/o increased pain today. Worked w/ PT but limited 2/2 pain. Family concerned abt d/c as pt not yet ambulating much Denies f/c, n/v, d/c, chest pain, SOB Family states pt will be going to hotel after d/c. younger daughter flying out in a few days. Older daughter will be at work. Therefore, pt has no one to care for her Objective Last 24 Hour Vital Signs Date Time Temp Pulse Resp B/P (MAP) Pulse Ox O2 Delivery O2 Flow Rate FiO2 09/03/17 14:44 98.5 09/03/17 12:00 98.2 72 20 115/59 98 Room Air 09/03/17 08:00 98.5 90 18 102/69 100 Room Air 09/03/17 04:25 98.1 79 18 101/70 94 Room Air 09/03/17 00:01 97.5 85 19 100/69 94 Room Air 09/02/17 20:05 97.9 87 17 99/63 95 Room Air 09/02/17 16:00 98.5 75 18 102/63 98 Room Air Intake and Output 09/03/17 09/04/17 19:00 07:00 Intake Total 600 ml Balance 600 ml Intake Oral 600 ml # Voids 2 Height (Feet): 5 Height (Inches): 4.00 Weight (Pounds): 125 Objective General: alert, cooperative, no distress, appears stated age Head: normocephalic, without obvious abnormality, atraumatic Eyes: conjunctivae/corneas clear. PERRL, EOM's intact Throat: lips, mucosa, and tongue normal. MMM Neck: supple, symmetrical, trachea midline, and no JVD Lungs: clear to auscultation bilaterally Heart: regular rate and rhythm, S1, S2 normal, no murmur, click, rub or gallop Abdomen: soft, non-tender, non-distended, bowel sounds normal; no masses or organomegaly Extremities: LLE in cast Pulses: 2+ and symmetric Skin: skin color, texture, turgor normal; no rashes or lesions Neurologic: grossly normal, no focal deficits Jenny Carlos M.D. Sep 03, 2017 15:38
[2017-09-03 16:00] VITALS: BP 93/56
[2017-09-03] MEDS: Cephalexin 500mg cap ORAL SCH ×2 (18:54→23:19)
[2017-09-03 20:40] VITALS: BP 99/66
[2017-09-04] VITALS: BP 92/60
[2017-09-04 04:00] VITALS: BP 96/63
[2017-09-04] MEDS: Cephalexin 500mg cap ORAL SCH ×3 (06:33→18:13)
[2017-09-04] MEDS: Docusate 100mg cap ORAL SCH ×3 (08:09→18:13)
[2017-09-04] MEDS: Pericolace tab ORAL SCH ×2 (08:09→18:13)
[2017-09-04] MEDS: oxyCONTIN 10mg tab ORAL SCH (08:09)
[2017-09-04] MEDS: Enoxaparin 30mg Inj SUBQ SCH (08:11)
[2017-09-04 08:15] VITALS: BP 95/54
[2017-09-04 11:58] VITALS: BP 99/65
[2017-09-04 16:00] VITALS: BP_SYST 101; BP_SYST 104; BP_DIAS 57; BP_DIAS 69
[2017-09-04 19:58] VITALS: BP 112/68
[2017-09-04] MEDS ORDERED: Tubing IV Secondary IV ONE (21:29)
[2017-09-04] MEDS ORDERED: NS 275ml ONE (21:29)
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
== END 2017-09-04 21:30 | disposition home health service (06) | DRG 493 ==
LOC: EDBD 17:07 → EMR 18:00 → 4E 19:13 → EDBEDREQ 21:39
PROC: 0QSKXZZ Reposition Left Fibula, External Approach (ICD-10-PCS; 2017-08-27)
PROC: 0QSHXZZ Reposition Left Tibia, External Approach (ICD-10-PCS; 2017-08-27)
PROC: 0QSK04Z Reposition Left Fibula with Internal Fixation Device, Open Approach (ICD-10-PCS; principal; 2017-08-28 14:00)
PROC: 0QSH04Z Reposition Left Tibia with Internal Fixation Device, Open Approach (ICD-10-PCS; principal; 2017-08-28 14:00)
PROC: 0LQR0ZZ Repair Left Knee Tendon, Open Approach (ICD-10-PCS; principal; 2017-08-28 14:00)
DX: S82.252B Displaced comminuted fracture of shaft of left tibia, initial encounter for open fracture type I or II (principal); D62 Acute posthemorrhagic anemia; S82.452B Displaced comminuted fracture of shaft of left fibula, initial encounter for open fracture type I or II; V03.09XA Pedestrian with other conveyance injured in collision with car, pick-up truck or van in nontraffic accident, initial encounter; Y92.488 Other paved roadways as the place of occurrence of the external cause; E87.6 Hypokalemia
CPT/HCPCS: 29125; 36415; 76001; 80048; 80053; 82550; 82553; 83735; 84703; 85025; 85610; 85730; 86850; 86900; 86901; 90471; 90715; 93005; 94003; 94150; 96365; 96375; 96376; 99284; C9399; J2250; J2405; J3490; J8499